=== PATIENT | female | born 1995 | race Two or more races ===

== ENCOUNTER 2023-06-30 10:52 | Emergency (ER) | payer OTHER ==
[~2023-06-30] VITALS: Ht 154.9 cm; Wt 67.1 kg
[2023-06-30 14:11] LABS: HEMATOCRIT 35.3 % (36.0-45.00); HEMOGLOBIN 12.1 g/dL (12.0-15.00); MEAN CELL VOLUME 85.9 fL (80.00-100.00); MEAN CORPUSCULAR HEMOGLOBIN 29.3 pg (27.00-32.0); MEAN CORPUSCULAR HGB CONC 34.1 g/dl (32.0-36.0); PLATELET COUNT 232 K/uL (150-450); RED BLOOD COUNT 4.11 M/uL (4.00-6.00); RED CELL DISTRIBUTION WIDTH 13.8 % (11.5-14.5)
== END 2023-06-30 16:51 | disposition home or self-care (01) ==
LOC: ER 10:53
PROVIDERS: General Practice
DX: B34.9 Viral infection, unspecified (principal); Z20.822 Contact with and (suspected) exposure to COVID-19